=== PATIENT | male | born 1990 | race Caucasian/White ===

== ENCOUNTER 2023-10-23 16:34 | Emergency (ER) | payer BC ==
[~2023-10-23] VITALS: Ht 188 cm; Wt 90.9 kg
[2023-10-23 16:58] VITALS: BP 104/54; PULSE 99; RESP 18; TEMP 97.8; O2SAT 98
[2023-10-23] MEDS: ondansetron 4mg rapidly disintigrating tab PO ONE (20:29)
[2023-10-23] MEDS ORDERED: ONDA8TAB13 PO (21:10)
[2023-10-23] MEDS ORDERED: HYDR-3965 PO (21:10)
[2023-10-24] MEDS ORDERED: NAPR-56 PO (17:50)
[2023-10-24] MEDS ORDERED: SULF1TAB49 PO (17:50)
[2023-10-24] MEDS ORDERED: CEPH-585 PO (17:50)
== END 2023-10-23 21:25 | disposition home or self-care (01) ==
LOC: ER 16:35
DX: S60.222A Contusion of left hand, initial encounter (principal); X58.XXXA Exposure to other specified factors, initial encounter; Y93.89 Activity, other specified; Y92.89 Other specified places as the place of occurrence of the external cause; Y99.8 Other external cause status
CPT/HCPCS: 73130; 99283

== ENCOUNTER 2023-10-24 17:29 | Inpatient (IN) | payer BC, OTHER ==
[~2023-10-24] VITALS: Ht 188 cm; Wt 92.7 kg
[~2023-10-24 17:29] MED LIST: HYDR-3965 PO; ONDA8TAB13 PO
[2023-10-24] MEDS ORDERED: ketorolac trometh inj. 60 MG/2 ML VIAL IM ONE (17:50)
[2023-10-24] MEDS ORDERED: CEPH-585 PO (17:50)
[2023-10-24] MEDS ORDERED: NAPR-56 PO (17:50)
[2023-10-24] MEDS ORDERED: SULF1TAB49 PO (17:50)
[2023-10-24] MEDS ORDERED: ketorolac trometh. 30mg/ml inj. IM ONE (17:50)
[2023-10-24] MEDS ORDERED: iohexol 300mg/ml 100ml inj. ONE (18:39)
[2023-10-24 18:59] LABS: BASOPHILS % (AUTO) 0.1 % (0-1); EOSINOPHILS % (AUTO) 0 % (0-6); HEMOGLOBIN 15.7 g/dl (14.0-17.9); LYMPHOCYTES # (AUTO) 0.3 X10'3 (1.1-4.8); LYMPHOCYTES % (AUTO) 0.9 % (21-51); MEAN CORPUSCULAR HEMOGLOBIN 29.9 PG (27.0-31.0); MEAN CORPUSCULAR HGB CONC 34.2 g/dL (33.0-36.5); MEAN CORPUSCULAR VOLUME 87.3 FL (78-98); MEAN PLATELET VOLUME 7.6 FL (7.4-10.4); MONOCYTES # (AUTO) 0.7 X10'3 (0-0.9); MONOCYTES % (AUTO) 2.1 % (2-12); NEUTROPHILS # (AUTO) 31.1 X10'3 (1.8-7.7); NEUTROPHILS % (AUTO) 96.9 % (42-75); PLATELET COUNT 165 X10'3 (140-440); RED BLOOD COUNT 5.27 X10'6 (4.70-6.10); RED CELL DISTRIBUTION WIDTH 13.4 % (11.5-14.5)
[2023-10-24 19:10] LABS: ALBUMIN 3.5 G/DL (3.4-5.0); ANION GAP 14 (8-16); BLOOD UREA NITROGEN 22 MG/DL (7-18); BUN/CREATININE RATIO 13.6 (10.0-20.0); CALCIUM 9.2 MG/DL (8.5-10.1); CHLORIDE 99 MMOL/L (99-107); CREATININE 1.62 MG/DL (0.60-1.10); GLUCOSE 134 MG/DL (70-104); MAGNESIUM 1.3 MG/DL (1.5-2.4); POTASSIUM 3.4 MMOL/L (3.5-5.1); SODIUM 137 MMOL/L (135-145); TOTAL CARBON DIOXIDE 23.7 MMOL/L (24-32); eCRCL 74 ML/MIN; eGFR 49 ML/MIN
[2023-10-24 19:13] LABS: WHITE BLOOD COUNT 32.1 X10'3 (4.5-11.0)
[2023-10-24] MEDS: piperacillin/tazo 3.375gm/50ml 50 ML IV ONE (19:18)
[2023-10-24] MEDS: ondansetron/PF 4mg/2ml inj IV ONE (19:22)
[2023-10-24] MEDS: normal saline 1000ML IV soln IV ONE (19:22)
[2023-10-24] MEDS: acetaminophen 325mg tablet PO STA (19:41)
[2023-10-24] MEDS: ketorolac tromethamine 15mg/ml inj. IV ONE (19:41)
[2023-10-24] MEDS: morphine 4 MG/ML inj SYRINge IV ONE (19:41)
[2023-10-24 19:49] LABS: C-REACTIVE PROTEIN 28.72 MG/DL (0.0-0.5); CREATINE KINASE 103 U/L (39-308)
[2023-10-24] MEDS: clindamycin 600mg/D5W 50ml 50 ML IV ONE (19:49)
[2023-10-24] MEDS: HYDROmorphone 1 mg/ml syringe IV ONE (20:05)
[2023-10-24] MEDS: vancomycin/NS 1 GM ADD-VANTAGE 250 ML X 1 DOSE IV ONE (20:12)
[2023-10-24] MEDS: diphenhydrAMINE 50 mg/ml inj IV ONE (20:17)
[2023-10-24] MEDS: LORazepam 2 mg/ml vial IV ONE (20:37)
[2023-10-24 23:28] LABS: TOTAL CELLS COUNTED 100
[2023-10-24 23:30] LABS: PLATELET ESTIMATE NORMAL; TOXIC GRANULATION 1+; TOXIC VACUOLATION FEW
[2023-10-25] MEDS: normal saline 1000ml 1,000 ML IV SCH (00:05)
[2023-10-25] MEDS ORDERED: potassium Cl 20 mEq SR tablet PO PRN (00:05)
[2023-10-25] MEDS ORDERED: magnesium 2GM in 50ml NS 50 ML IV PRN (00:05)
[2023-10-25] MEDS ORDERED: magnesium Cl slow-release 64mg tablet PO PRN (00:05)
[2023-10-25] MEDS ORDERED: potassium Cl 40MEQ/1/2NS 520ml 520 ML IV PRN (00:05)
[2023-10-25] MEDS ORDERED: magnesium 4gm in 100ml NS 100 ML IV PRN (00:05)
[2023-10-25 04:03] LABS: MAGNESIUM 1.5 MG/DL (1.5-2.4); POTASSIUM 3.8 MMOL/L (3.5-5.1)
[2023-10-25] MEDS: morphine 2 MG/ML inj. syringe IV PRN (05:12)
[2023-10-25 08:17] LABS: BASOPHILS % (AUTO) 0.1 % (0-1); EOSINOPHILS # (AUTO) 0.1 X10'3 (0-0.9); EOSINOPHILS % (AUTO) 0.5 % (0-6); HEMATOCRIT 37.5 % (42.0-52.0); HEMOGLOBIN 12.6 g/dl (14.0-17.9); LYMPHOCYTES # (AUTO) 0.4 X10'3 (1.1-4.8); LYMPHOCYTES % (AUTO) 2.1 % (21-51); MEAN CORPUSCULAR HEMOGLOBIN 29.8 PG (27.0-31.0); MEAN CORPUSCULAR HGB CONC 33.7 g/dL (33.0-36.5); MEAN CORPUSCULAR VOLUME 88.3 FL (78-98); MEAN PLATELET VOLUME 7.4 FL (7.4-10.4); MONOCYTES # (AUTO) 0.6 X10'3 (0-0.9); MONOCYTES % (AUTO) 2.7 % (2-12); NEUTROPHILS # (AUTO) 20.2 X10'3 (1.8-7.7); NEUTROPHILS % (AUTO) 94.6 % (42-75); PLATELET COUNT 134 X10'3 (140-440); RED BLOOD COUNT 4.25 X10'6 (4.70-6.10); RED CELL DISTRIBUTION WIDTH 13.6 % (11.5-14.5); WHITE BLOOD COUNT 21.3 X10'3 (4.5-11.0)
[2023-10-25 08:29] LABS: ALANINE AMINOTRANSFERASE 11 U/L (12-78); ALBUMIN 2.2 G/DL (3.4-5.0); ALBUMIN/GLOBULIN RATIO 0.7 (1.1-1.5); ALKALINE PHOSPHATASE 49 IU/L (46-116); ANION GAP 7 (8-16); ASPARTATE AMINO TRANSFERASE 12 U/L (10-37); BILIRUBIN,TOTAL 1.4 MG/DL (0.1-1.0); BLOOD UREA NITROGEN 24 MG/DL (7-18); BUN/CREATININE RATIO 16.8 (10.0-20.0); CHLORIDE 108 MMOL/L (99-107); CREATINE KINASE 46 U/L (39-308); CREATININE 1.43 MG/DL (0.60-1.10); GLUCOSE 98 MG/DL (70-104); SODIUM 140 MMOL/L (135-145); TOTAL CARBON DIOXIDE 24.6 MMOL/L (24-32); TOTAL PROTEIN 5.3 G/DL (6.4-8.2); eCRCL 84 ML/MIN; eGFR 56 ML/MIN
[2023-10-25] MEDS: piperacillin/tazo 3.375gm/50ml 50 ML IV SCH (08:49)
[2023-10-25] MEDS: docusate sod 100mg capsule PO SCH (08:49)
[2023-10-25 08:50] LABS: TOTAL CELLS COUNTED 100
[2023-10-25 08:51] LABS: PLATELET ESTIMATE DECREASED; TOXIC VACUOLATION 1+
[2023-10-25] MEDS: K and/or MAG REPLACEMENT MC SCH (09:21)
[2023-10-25 09:25] VITALS: BP 101/58; PULSE 111; RESP 18; TEMP 98.2; O2SAT 100
[2023-10-25] MEDS: vancomycin/NS 1 GM ADD-VANTAGE 250 ML IV SCH (09:30)
[2023-10-25 09:37] LABS: C-REACTIVE PROTEIN 32.02 MG/DL (0.0-0.5)
[2023-10-25 09:39] LABS: CALCIUM 7.2 MG/DL (8.5-10.1)
[2023-10-25 11:15] VITALS: BP 103/56; PULSE 105; RESP 16; TEMP 97.9; O2SAT 97
[2023-10-25] MEDS: acetaminophen 325mg tablet PO PRN (13:24)
[2023-10-25 18:00] VITALS: BP 127/65; PULSE 94; RESP 17; TEMP 98.8; O2SAT 99
[2023-10-25 20:00] VITALS: RESP 17; RESP 18; O2SAT 97; O2SAT 99
[2023-10-25] MEDS: enoxaparin 40mg/0.4ml syringe SQ SCH (20:00)
[2023-10-25 22:00] VITALS: BP 106/48; PULSE 109; RESP 18; TEMP 99.8; O2SAT 97
[2023-10-25] MEDS: ringers solution, lacted 1,000 ML IV ONE (22:12)
[2023-10-26] VITALS (7 sets, daily range): BP systolic 110–132; BP diastolic 66–90; PULSE 63–149; RESP 16–22; TEMP 97.8–100; O2SAT 95–98
[2023-10-26] MEDS: VANCOMYCIN LEVEL IJ ONE (07:30)
[2023-10-26 07:46] LABS: BASOPHILS # (AUTO) 0.1 X10'3 (0-0.2); BASOPHILS % (AUTO) 0.5 % (0-1); EOSINOPHILS # (AUTO) 0.1 X10'3 (0-0.9); EOSINOPHILS % (AUTO) 0.9 % (0-6); HEMATOCRIT 33.2 % (42.0-52.0); HEMOGLOBIN 11.4 g/dl (14.0-17.9); LYMPHOCYTES # (AUTO) 0.5 X10'3 (1.1-4.8); LYMPHOCYTES % (AUTO) 3.2 % (21-51); MEAN CORPUSCULAR HGB CONC 34.4 g/dL (33.0-36.5); MEAN CORPUSCULAR VOLUME 87.1 FL (78-98); MEAN PLATELET VOLUME 7.6 FL (7.4-10.4); MONOCYTES # (AUTO) 0.5 X10'3 (0-0.9); MONOCYTES % (AUTO) 3.3 % (2-12); NEUTROPHILS # (AUTO) 15.2 X10'3 (1.8-7.7); NEUTROPHILS % (AUTO) 92.1 % (42-75); PLATELET COUNT 124 X10'3 (140-440); RED BLOOD COUNT 3.81 X10'6 (4.70-6.10); RED CELL DISTRIBUTION WIDTH 13.6 % (11.5-14.5); WHITE BLOOD COUNT 16.5 X10'3 (4.5-11.0)
[2023-10-26 07:53] LABS: ANION GAP 12 (8-16); BLOOD UREA NITROGEN 16 MG/DL (7-18); BUN/CREATININE RATIO 15.1 (10.0-20.0); CALCIUM 7.5 MG/DL (8.5-10.1); CHLORIDE 106 MMOL/L (99-107); CREATININE 1.06 MG/DL (0.60-1.10); GLUCOSE 96 MG/DL (70-104); MAGNESIUM 1.7 MG/DL (1.5-2.4); POTASSIUM 3.4 MMOL/L (3.5-5.1); SODIUM 140 MMOL/L (135-145); TOTAL CARBON DIOXIDE 21.6 MMOL/L (24-32); VANCOMYCIN,TROUGH 8.5 ug/mL (10.0-20.0); eCRCL 113 ML/MIN; eGFR 80 ML/MIN
[2023-10-26] MEDS: VANCOmycin 1250MG/NS 250ml Bag 250 ML IV SCH (17:07)
[2023-10-26] MEDS: mag hydrox/Alum hydrox/simeth 30ml oral suspension PO PRN (19:16)
[2023-10-26] MEDS: potassium Cl 20 mEq SR tablet PO PRN (19:22)
[2023-10-27] MEDS: ondansetron/PF 4mg/2ml inj IV PRN (00:17)
[2023-10-27 06:00] VITALS: BP 123/71; PULSE 85; RESP 20; TEMP 99.3; O2SAT 99
[2023-10-27 06:38] LABS: BASOPHILS # (AUTO) 0.1 X10'3 (0-0.2); BASOPHILS % (AUTO) 0.4 % (0-1); EOSINOPHILS # (AUTO) 0.1 X10'3 (0-0.9); EOSINOPHILS % (AUTO) 0.7 % (0-6); HEMATOCRIT 32.8 % (42.0-52.0); HEMOGLOBIN 11.1 g/dl (14.0-17.9); LYMPHOCYTES # (AUTO) 0.9 X10'3 (1.1-4.8); MEAN CORPUSCULAR HEMOGLOBIN 29.6 PG (27.0-31.0); MEAN CORPUSCULAR HGB CONC 33.9 g/dL (33.0-36.5); MEAN CORPUSCULAR VOLUME 87.6 FL (78-98); MONOCYTES # (AUTO) 1.1 X10'3 (0-0.9); MONOCYTES % (AUTO) 8.7 % (2-12); NEUTROPHILS # (AUTO) 10.8 X10'3 (1.8-7.7); NEUTROPHILS % (AUTO) 83.2 % (42-75); PLATELET COUNT 139 X10'3 (140-440); RED BLOOD COUNT 3.75 X10'6 (4.70-6.10); RED CELL DISTRIBUTION WIDTH 13.6 % (11.5-14.5)
[2023-10-27 06:54] LABS: ALBUMIN 2.1 G/DL (3.4-5.0); ANION GAP 10 (8-16); BLOOD UREA NITROGEN 9 MG/DL (7-18); BUN/CREATININE RATIO 9.5 (10.0-20.0); CALCIUM 7.6 MG/DL (8.5-10.1); CHLORIDE 107 MMOL/L (99-107); CREATININE 0.95 MG/DL (0.60-1.10); GLUCOSE 98 MG/DL (70-104); MAGNESIUM 1.9 MG/DL (1.5-2.4); POTASSIUM 3.5 MMOL/L (3.5-5.1); SODIUM 139 MMOL/L (135-145); TOTAL CARBON DIOXIDE 22.3 MMOL/L (24-32); eCRCL 126 ML/MIN; eGFR 90 ML/MIN
[2023-10-27 07:01] LABS: C DIFF ANTIGEN NEGATIVE (NEGATIVE); C DIFF SPECIMEN=DIARRHEA? ACCEPTABLE; C DIFFICILE TOXINS A&B NEGATIVE (Neg)
[2023-10-27 08:15] VITALS: RESP 16
[2023-10-27 11:27] VITALS: BP 127/72; PULSE 82; RESP 16; TEMP 98; O2SAT 99
[2023-10-27] MEDS ORDERED: lactobacillus rhamnosus 10,000 MMU CELLS/CAPSULE PO SCH (12:30)
[2023-10-27] MEDS ORDERED: lactobacillus acidophilus cap PO SCH (12:30)
[2023-10-27] MEDS: lactobacillus rhamnosus 10,000 MMU CELLS/CAPSULE PO ONE (13:19)
[2023-10-27] MEDS ORDERED: GADOTERATE MEGLUMINE 7.5 MMOL/15 ML VIAL IV ONE (14:26)
[2023-10-27] MEDS: VANCOMYCIN LEVEL IJ ONE (16:00)
[2023-10-27] MEDS: HYDROcodone/acetaminophen 5mg/325mg tablet PO PRN (17:16)
[2023-10-27] MEDS: ketorolac tromethamine 15mg/ml inj. IV ONE (17:17)
[2023-10-27] MEDS: lactobacillus rhamnosus 10,000 MMU CELLS/CAPSULE PO SCH (17:30)
[2023-10-27 18:30] VITALS: BP 114/65; PULSE 76; RESP 20; TEMP 99.5; O2SAT 95
[2023-10-27 22:00] VITALS: BP 110/64; PULSE 61; RESP 16; TEMP 97.9; O2SAT 98
[2023-10-28 06:06] LABS: BASOPHILS % (AUTO) 0.3 % (0-1); EOSINOPHILS # (AUTO) 0.2 X10'3 (0-0.9); EOSINOPHILS % (AUTO) 2.4 % (0-6); HEMATOCRIT 30.4 % (42.0-52.0); HEMOGLOBIN 10.7 g/dl (14.0-17.9); LYMPHOCYTES # (AUTO) 0.9 X10'3 (1.1-4.8); LYMPHOCYTES % (AUTO) 11.7 % (21-51); MEAN CORPUSCULAR HEMOGLOBIN 30.7 PG (27.0-31.0); MEAN CORPUSCULAR HGB CONC 35.3 g/dL (33.0-36.5); MEAN CORPUSCULAR VOLUME 86.9 FL (78-98); MONOCYTES # (AUTO) 1.1 X10'3 (0-0.9); MONOCYTES % (AUTO) 14.9 % (2-12); NEUTROPHILS # (AUTO) 5.2 X10'3 (1.8-7.7); NEUTROPHILS % (AUTO) 70.7 % (42-75); PLATELET COUNT 142 X10'3 (140-440); RED CELL DISTRIBUTION WIDTH 13.4 % (11.5-14.5); WHITE BLOOD COUNT 7.4 X10'3 (4.5-11.0)
[2023-10-28 06:14] LABS: ALBUMIN 1.9 G/DL (3.4-5.0); ANION GAP 10 (8-16); BLOOD UREA NITROGEN 11 MG/DL (7-18); CALCIUM 7.8 MG/DL (8.5-10.1); CHLORIDE 109 MMOL/L (99-107); CREATININE 1.22 MG/DL (0.60-1.10); GLUCOSE 91 MG/DL (70-104); POTASSIUM 3.3 MMOL/L (3.5-5.1); SODIUM 141 MMOL/L (135-145); TOTAL CARBON DIOXIDE 21.9 MMOL/L (24-32); eCRCL 98 ML/MIN; eGFR 68 ML/MIN
[2023-10-28 06:58] VITALS: BP 113/69; PULSE 69; RESP 16; TEMP 97.7; O2SAT 99
[2023-10-28 09:00] VITALS: RESP 18; O2SAT 98
[2023-10-28 10:00] VITALS: BP 115/70; PULSE 49; RESP 14; TEMP 97.5; O2SAT 97
[2023-10-28] MEDS ORDERED: magnesium 2GM in 50ml NS 50 ML IV PRN (10:35)
[2023-10-28] MEDS ORDERED: potassium Cl 40MEQ/1/2NS 520ml 520 ML IV PRN (10:35)
[2023-10-28] MEDS ORDERED: magnesium 4gm in 100ml NS 100 ML IV PRN (10:35)
[2023-10-28] MEDS ORDERED: magnesium Cl slow-release 64mg tablet PO PRN (10:35)
[2023-10-28] MEDS: potassium Cl 20 mEq SR tablet PO PRN ×2 (11:42→19:17)
[2023-10-28] MEDS: magnesium hydroxide 30ml (MOM) UD suspension PO PRN (14:30)
[2023-10-28 18:30] VITALS: BP 126/64; PULSE 55; RESP 16; TEMP 97.9; O2SAT 99
[2023-10-28 18:43] VITALS: BP 126/64; PULSE 55; RESP 16; TEMP 97.9; O2SAT 99
[2023-10-28] MEDS: lactobacillus rhamnosus 10,000 MMU CELLS/CAPSULE PO SCH (19:17)
[2023-10-28] MEDS: ketorolac tromethamine 15mg/ml inj. IV ONE (21:08)
[2023-10-29 06:00] VITALS: BP 126/71; PULSE 61; RESP 16; TEMP 96.3; O2SAT 96
[2023-10-29 06:24] LABS: BASOPHILS % (AUTO) 0.3 % (0-1); EOSINOPHILS # (AUTO) 0.1 X10'3 (0-0.9); EOSINOPHILS % (AUTO) 0.9 % (0-6); HEMOGLOBIN 11.3 g/dl (14.0-17.9); LYMPHOCYTES # (AUTO) 1.1 X10'3 (1.1-4.8); LYMPHOCYTES % (AUTO) 11.3 % (21-51); MEAN CORPUSCULAR HEMOGLOBIN 30.1 PG (27.0-31.0); MEAN CORPUSCULAR HGB CONC 34.3 g/dL (33.0-36.5); MEAN CORPUSCULAR VOLUME 87.7 FL (78-98); MEAN PLATELET VOLUME 7.2 FL (7.4-10.4); MONOCYTES # (AUTO) 1.5 X10'3 (0-0.9); MONOCYTES % (AUTO) 15.9 % (2-12); NEUTROPHILS # (AUTO) 6.9 X10'3 (1.8-7.7); NEUTROPHILS % (AUTO) 71.6 % (42-75); PLATELET COUNT 217 X10'3 (140-440); RED BLOOD COUNT 3.76 X10'6 (4.70-6.10); RED CELL DISTRIBUTION WIDTH 13.3 % (11.5-14.5); WHITE BLOOD COUNT 9.6 X10'3 (4.5-11.0)
[2023-10-29 06:25] LABS: ANION GAP 9 (8-16); BLOOD UREA NITROGEN 17 MG/DL (7-18); CALCIUM 7.8 MG/DL (8.5-10.1); CHLORIDE 112 MMOL/L (99-107); CREATININE 2.82 MG/DL (0.60-1.10); GLUCOSE 91 MG/DL (70-104); POTASSIUM 3.7 MMOL/L (3.5-5.1); SODIUM 144 MMOL/L (135-145); TOTAL CARBON DIOXIDE 23.4 MMOL/L (24-32); eCRCL 43 ML/MIN; eGFR 26 ML/MIN
[2023-10-29 06:26] LABS: ALBUMIN 1.8 G/DL (3.4-5.0); MAGNESIUM 2.2 MG/DL (1.5-2.4)
[2023-10-29 07:06] LABS: TOTAL CELLS COUNTED 100
[2023-10-29 07:07] LABS: PLATELET ESTIMATE NORMAL
[2023-10-29 10:00] VITALS: BP 126/71; PULSE 62; RESP 16; TEMP 97.7; O2SAT 97
[2023-10-29] MEDS: NUT.TX.IMPAIRED DIGEST FXN (Ensure Clear) 237 ML PO SCH (13:27)
[2023-10-29 18:00] VITALS: BP 130/69; PULSE 61; RESP 14; TEMP 98; O2SAT 96
[2023-10-29 20:00] VITALS: RESP 16; O2SAT 96
[2023-10-29 22:00] VITALS: BP 140/81; PULSE 69; RESP 16; TEMP 98.4; O2SAT 99
[2023-10-29 23:08] LABS: BILIRUBIN,URINE NEGATIVE (Neg); CLARITY,URINE CLEAR (Clear); COLOR,URINE YELLOW (Yellow); GLUCOSE, URINE NEGATIVE (Neg); KETONES,URINE TRACE mg/dl (Neg); LEUKOCYTE ESTERASE ,URINE NEGATIVE (Neg); NITRITES, URINE NEGATIVE (Neg); OCCULT BLOOD,URINE TRACE-INTACT (Neg); PROTEIN,URINE 30 mg/dl (Neg); UROBILINOGEN,URINE 0.2 E.U/dL (0.2-1.0)
[2023-10-29 23:21] LABS: UA COLLECTION TYPE CLN CATCH MIDSTREAM
[2023-10-29 23:22] LABS: BACTERIA,URINE FEW /HPF (Neg); RBC,URINE 0-2 /HPF (0-2); WBC,URINE 0-4 /HPF (0-4)
[2023-10-29 23:23] LABS: SQUAMOUS EPITHELIAL CELL,UR NONE SEEN /LPF (FEW)
[2023-10-30] VITALS (8 sets, daily range): BP systolic 119–134; BP diastolic 55–73; PULSE 54–62; RESP 14–18; TEMP 98.1–99.4; O2SAT 96–100
[2023-10-30 00:22] LABS: UA EOSINOPHILS NO EOS /HPF
[2023-10-30 05:40] LABS: BASOPHILS % (AUTO) 0.4 % (0-1); EOSINOPHILS % (AUTO) 0.2 % (0-6); HEMATOCRIT 32.4 % (42.0-52.0); HEMOGLOBIN 11.2 g/dl (14.0-17.9); LYMPHOCYTES # (AUTO) 1.1 X10'3 (1.1-4.8); LYMPHOCYTES % (AUTO) 10.3 % (21-51); MEAN CORPUSCULAR HEMOGLOBIN 30.1 PG (27.0-31.0); MEAN CORPUSCULAR HGB CONC 34.5 g/dL (33.0-36.5); MEAN CORPUSCULAR VOLUME 87.1 FL (78-98); MEAN PLATELET VOLUME 6.9 FL (7.4-10.4); MONOCYTES # (AUTO) 1.3 X10'3 (0-0.9); NEUTROPHILS # (AUTO) 8.1 X10'3 (1.8-7.7); NEUTROPHILS % (AUTO) 77.1 % (42-75); PLATELET COUNT 274 X10'3 (140-440); RED BLOOD COUNT 3.72 X10'6 (4.70-6.10); RED CELL DISTRIBUTION WIDTH 13.6 % (11.5-14.5); WHITE BLOOD COUNT 10.5 X10'3 (4.5-11.0)
[2023-10-30 05:55] LABS: ALBUMIN 1.8 G/DL (3.4-5.0); ANION GAP 9 (8-16); BLOOD UREA NITROGEN 18 MG/DL (7-18); CALCIUM 7.5 MG/DL (8.5-10.1); CHLORIDE 111 MMOL/L (99-107); CREATINE KINASE 33 U/L (39-308); CREATININE 3.57 MG/DL (0.60-1.10); GLUCOSE 98 MG/DL (70-104); MAGNESIUM 2.5 MG/DL (1.5-2.4); PHOSPHORUS 3.2 MG/DL (2.3-4.5); POTASSIUM 3.7 MMOL/L (3.5-5.1); SODIUM 141 MMOL/L (135-145); TOTAL CARBON DIOXIDE 21.1 MMOL/L (24-32); eCRCL 34 ML/MIN; eGFR 20 ML/MIN
[2023-10-30 07:00] LABS: LACTATE DEHYDROGENASE 202 U/L (85-227)
[2023-10-30] MEDS: cefepime 2g/NS 100ml ADVANTAGE 100 ML IV SCH (08:48)
[2023-10-30] MEDS: methylPREDNISolone sod succ 125mg/2ml vial IV ONE (14:40)
[2023-10-30] MEDS: furosemide 40mg/4ml inj IV ONE (14:40)
[2023-10-30] MEDS: linezolid 600mg tablet PO SCH (19:43)
[2023-10-31 06:29] LABS: BASOPHILS % (AUTO) 0.1 % (0-1); EOSINOPHILS % (AUTO) 0 % (0-6); HEMATOCRIT 36.6 % (42.0-52.0); HEMOGLOBIN 12.6 g/dl (14.0-17.9); LYMPHOCYTES # (AUTO) 0.9 X10'3 (1.1-4.8); LYMPHOCYTES % (AUTO) 7.1 % (21-51); MEAN CORPUSCULAR HGB CONC 34.4 g/dL (33.0-36.5); MEAN CORPUSCULAR VOLUME 87.1 FL (78-98); MONOCYTES # (AUTO) 0.2 X10'3 (0-0.9); MONOCYTES % (AUTO) 1.5 % (2-12); NEUTROPHILS % (AUTO) 91.3 % (42-75); PLATELET COUNT 383 X10'3 (140-440); RED CELL DISTRIBUTION WIDTH 13.9 % (11.5-14.5); WHITE BLOOD COUNT 12.1 X10'3 (4.5-11.0)
[2023-10-31 06:30] VITALS: BP 111/67; PULSE 55; RESP 16; TEMP 98.5; O2SAT 95
[2023-10-31 06:40] LABS: ALBUMIN 2.1 G/DL (3.4-5.0); ANION GAP 9 (8-16); BLOOD UREA NITROGEN 23 MG/DL (7-18); BUN/CREATININE RATIO 5.8 (10.0-20.0); CALCIUM 8.2 MG/DL (8.5-10.1); CHLORIDE 109 MMOL/L (99-107); CREATININE 3.99 MG/DL (0.60-1.10); GLUCOSE 125 MG/DL (70-104); MAGNESIUM 2.5 MG/DL (1.5-2.4); PHOSPHORUS 4.5 MG/DL (2.3-4.5); RHEUM FACTOR QUAL REFLEX TITER NEGATIVE (Neg); SODIUM 141 MMOL/L (135-145); TOTAL CARBON DIOXIDE 22.9 MMOL/L (24-32); eCRCL 30 ML/MIN; eGFR 17 ML/MIN
[2023-10-31 07:11] LABS: HIV ANTIBODY 1&2 RAPID NON-REACTIVE (Neg)
[2023-10-31 08:00] VITALS: RESP 16; O2SAT 95
[2023-10-31] MEDS: furosemide 20 MG/2 ML vial IV ONE (13:58)
[2023-10-31] MEDS: normal saline 1000ml 1,000 ML IV SCH (15:55)
[2023-10-31 18:00] VITALS: BP 137/80; PULSE 54; RESP 17; TEMP 97.5; O2SAT 99
[2023-10-31 20:00] VITALS: RESP 14; O2SAT 99
[2023-10-31 22:00] VITALS: BP 123/80; PULSE 65; RESP 20; TEMP 98.9; O2SAT 99
[2023-11-01 04:56] LABS: BASOPHILS # (AUTO) 0.1 X10'3 (0-0.2); BASOPHILS % (AUTO) 0.5 % (0-1); EOSINOPHILS % (AUTO) 0.1 % (0-6); HEMATOCRIT 31.9 % (42.0-52.0); LYMPHOCYTES # (AUTO) 1.5 X10'3 (1.1-4.8); MEAN CORPUSCULAR HEMOGLOBIN 29.9 PG (27.0-31.0); MEAN CORPUSCULAR HGB CONC 34.4 g/dL (33.0-36.5); MEAN CORPUSCULAR VOLUME 86.8 FL (78-98); MEAN PLATELET VOLUME 6.7 FL (7.4-10.4); MONOCYTES # (AUTO) 0.9 X10'3 (0-0.9); MONOCYTES % (AUTO) 6.9 % (2-12); NEUTROPHILS # (AUTO) 9.9 X10'3 (1.8-7.7); NEUTROPHILS % (AUTO) 80.5 % (42-75); PLATELET COUNT 357 X10'3 (140-440); RED BLOOD COUNT 3.68 X10'6 (4.70-6.10); RED CELL DISTRIBUTION WIDTH 13.6 % (11.5-14.5); WHITE BLOOD COUNT 12.3 X10'3 (4.5-11.0)
[2023-11-01 05:09] LABS: ANION GAP 11 (8-16); BLOOD UREA NITROGEN 28 MG/DL (7-18); BUN/CREATININE RATIO 6.9 (10.0-20.0); CALCIUM 7.8 MG/DL (8.5-10.1); CHLORIDE 111 MMOL/L (99-107); CREATININE 4.04 MG/DL (0.60-1.10); GLUCOSE 127 MG/DL (70-104); MAGNESIUM 2.4 MG/DL (1.5-2.4); PHOSPHORUS 4.7 MG/DL (2.3-4.5); POTASSIUM 3.7 MMOL/L (3.5-5.1); SODIUM 142 MMOL/L (135-145); TOTAL CARBON DIOXIDE 20.5 MMOL/L (24-32); eCRCL 30 ML/MIN; eGFR 17 ML/MIN
[2023-11-01 06:00] VITALS: BP 126/72; PULSE 63; RESP 16; TEMP 99.3; O2SAT 98
[2023-11-01 08:15] VITALS: RESP 16
[2023-11-01 10:00] VITALS: BP 133/74; PULSE 52; RESP 17; TEMP 97.1; O2SAT 100
[2023-11-01] MEDS: furosemide 40mg/4ml inj IV ONE (11:49)
[2023-11-01] MEDS: methylPREDNISolone sod succ 125mg/2ml vial IV ONE (11:50)
[2023-11-01 16:05] LABS: ANTINUCLEAR ANTIBODIES Negative (Negative); ANTISTREPTOLYSIN O AB 65.9 IU/mL (0.0-200.0); COMPLEMENT C3, SERUM 121 mg/dL (82-167); HBSAG SCREEN Negative (Negative)
[2023-11-01 18:00] VITALS: BP 151/75; PULSE 54; RESP 17; TEMP 98.3; O2SAT 96
[2023-11-01 20:00] VITALS: RESP 17; O2SAT 96
[2023-11-01] MEDS: heparin, porcine 5000 units/ml vial SQ SCH (20:00)
[2023-11-01 22:00] VITALS: BP 125/65; PULSE 55; RESP 19; TEMP 97.6; O2SAT 98
[2023-11-02 05:50] LABS: ALBUMIN 2.5 G/DL (3.4-5.0); ANION GAP 13 (8-16); BLOOD UREA NITROGEN 30 MG/DL (7-18); BUN/CREATININE RATIO 7.6 (10.0-20.0); CALCIUM 8.3 MG/DL (8.5-10.1); CHLORIDE 108 MMOL/L (99-107); CREATININE 3.97 MG/DL (0.60-1.10); GLUCOSE 108 MG/DL (70-104); MAGNESIUM 2.4 MG/DL (1.5-2.4); PHOSPHORUS 5.1 MG/DL (2.3-4.5); POTASSIUM 3.9 MMOL/L (3.5-5.1); SODIUM 143 MMOL/L (135-145); TOTAL CARBON DIOXIDE 22.1 MMOL/L (24-32); eCRCL 30 ML/MIN; eGFR 17 ML/MIN
[2023-11-02 05:57] LABS: BASOPHILS % (AUTO) 0.2 % (0-1); EOSINOPHILS % (AUTO) 0 % (0-6); HEMATOCRIT 34.6 % (42.0-52.0); HEMOGLOBIN 11.8 g/dl (14.0-17.9); LYMPHOCYTES # (AUTO) 1.6 X10'3 (1.1-4.8); LYMPHOCYTES % (AUTO) 10.5 % (21-51); MEAN CORPUSCULAR HEMOGLOBIN 29.7 PG (27.0-31.0); MEAN CORPUSCULAR HGB CONC 34.1 g/dL (33.0-36.5); MEAN PLATELET VOLUME 6.9 FL (7.4-10.4); MONOCYTES # (AUTO) 0.5 X10'3 (0-0.9); MONOCYTES % (AUTO) 3.3 % (2-12); NEUTROPHILS # (AUTO) 13.1 X10'3 (1.8-7.7); PLATELET COUNT 490 X10'3 (140-440); RED BLOOD COUNT 3.98 X10'6 (4.70-6.10); RED CELL DISTRIBUTION WIDTH 13.6 % (11.5-14.5); WHITE BLOOD COUNT 15.2 X10'3 (4.5-11.0)
[2023-11-02 06:54] VITALS: BP 126/63; PULSE 63; RESP 16; TEMP 98; O2SAT 99
[2023-11-02 08:00] VITALS: RESP 16; O2SAT 99
[2023-11-02 10:00] VITALS: BP 124/73; PULSE 60; RESP 20; TEMP 98.6; O2SAT 100
[2023-11-02 10:54] LABS: COMPLEMENT C4, SERUM 19 mg/dL (12-38)
[2023-11-02 14:39] LABS: BILIRUBIN,URINE NEGATIVE (Neg); CLARITY,URINE CLEAR (Clear); COLOR,URINE YELLOW (Yellow); GLUCOSE, URINE NEGATIVE (Neg); KETONES,URINE NEGATIVE (Neg); LEUKOCYTE ESTERASE ,URINE NEGATIVE (Neg); NITRITES, URINE NEGATIVE (Neg); OCCULT BLOOD,URINE TRACE-INTACT (Neg); PROTEIN,URINE NEGATIVE (Neg); UROBILINOGEN,URINE 0.2 E.U/dL (0.2-1.0)
[2023-11-02 14:44] LABS: UA COLLECTION TYPE CLN CATCH MIDSTREAM
[2023-11-02 14:45] LABS: BACTERIA,URINE FEW /HPF (Neg); MUCUS STRANDS NONE SEEN /LPF (Neg); RBC,URINE 0-2 /HPF (0-2); SQUAMOUS EPITHELIAL CELL,UR FEW /LPF (FEW); WBC,URINE 20-30 /HPF (0-4)
[2023-11-02 14:48] LABS: TOTAL PROTEIN,URINE RANDOM 35.3 MG/DL
[2023-11-02 15:10] LABS: UA EOSINOPHILS NO EOS /HPF
[2023-11-02 18:00] VITALS: BP 137/72; PULSE 75; RESP 16; TEMP 97.6; O2SAT 96
[2023-11-02 20:00] VITALS: RESP 16; O2SAT 96
[2023-11-02 22:00] VITALS: BP 123/63; PULSE 52; RESP 18; TEMP 97.6; O2SAT 98
[2023-11-03 06:39] LABS: BASOPHILS % (AUTO) 0.3 % (0-1); EOSINOPHILS % (AUTO) 0.1 % (0-6); HEMATOCRIT 31.8 % (42.0-52.0); HEMOGLOBIN 10.7 g/dl (14.0-17.9); LYMPHOCYTES # (AUTO) 1.3 X10'3 (1.1-4.8); LYMPHOCYTES % (AUTO) 11.8 % (21-51); MEAN CORPUSCULAR HEMOGLOBIN 29.6 PG (27.0-31.0); MEAN CORPUSCULAR HGB CONC 33.8 g/dL (33.0-36.5); MEAN CORPUSCULAR VOLUME 87.6 FL (78-98); MONOCYTES # (AUTO) 0.7 X10'3 (0-0.9); MONOCYTES % (AUTO) 6.5 % (2-12); NEUTROPHILS % (AUTO) 81.3 % (42-75); PLATELET COUNT 381 X10'3 (140-440); RED BLOOD COUNT 3.63 X10'6 (4.70-6.10); RED CELL DISTRIBUTION WIDTH 13.7 % (11.5-14.5)
[2023-11-03 06:54] LABS: ALBUMIN 2.1 G/DL (3.4-5.0); ANION GAP 14 (8-16); BLOOD UREA NITROGEN 34 MG/DL (7-18); BUN/CREATININE RATIO 8.7 (10.0-20.0); CALCIUM 8.1 MG/DL (8.5-10.1); CHLORIDE 110 MMOL/L (99-107); CREATININE 3.92 MG/DL (0.60-1.10); GLUCOSE 98 MG/DL (70-104); MAGNESIUM 2.5 MG/DL (1.5-2.4); POTASSIUM 3.8 MMOL/L (3.5-5.1); SODIUM 145 MMOL/L (135-145); TOTAL CARBON DIOXIDE 21.4 MMOL/L (24-32); eCRCL 31 ML/MIN; eGFR 18 ML/MIN
[2023-11-03 06:55] VITALS: BP 117/72; PULSE 52; RESP 16; TEMP 98; O2SAT 96
[2023-11-03 08:30] VITALS: RESP 18; O2SAT 98
[2023-11-03 11:00] VITALS: BP 132/87; PULSE 51; RESP 16; TEMP 98.2; O2SAT 99
[2023-11-03] MEDS ORDERED: iohexol 350MG/ML 100ml bottle IV ONE (14:05)
[2023-11-03] MEDS ORDERED: iohexol 350 MG/ML 50ML vial IV ONE (14:06)
[2023-11-03 18:00] VITALS: BP 144/81; PULSE 51; RESP 15; TEMP 97.4; O2SAT 99
[2023-11-03] MEDS: NUT.TX.IMP.RENAL FXN,LAC-REDUC (Nepro) 237 ML VANILLA PO SCH (18:00)
[2023-11-03 20:00] VITALS: RESP 15; O2SAT 99
[2023-11-03 22:14] VITALS: BP 141/81; PULSE 63; RESP 20; TEMP 97.7; O2SAT 100
[2023-11-04 06:23] LABS: BASOPHILS % (AUTO) 0.4 % (0-1); EOSINOPHILS % (AUTO) 0.2 % (0-6); HEMATOCRIT 31.3 % (42.0-52.0); HEMOGLOBIN 10.8 g/dl (14.0-17.9); LYMPHOCYTES # (AUTO) 1.2 X10'3 (1.1-4.8); LYMPHOCYTES % (AUTO) 11.4 % (21-51); MEAN CORPUSCULAR HEMOGLOBIN 30.2 PG (27.0-31.0); MEAN CORPUSCULAR HGB CONC 34.6 g/dL (33.0-36.5); MEAN CORPUSCULAR VOLUME 87.2 FL (78-98); MEAN PLATELET VOLUME 6.9 FL (7.4-10.4); MONOCYTES # (AUTO) 0.7 X10'3 (0-0.9); MONOCYTES % (AUTO) 6.5 % (2-12); NEUTROPHILS # (AUTO) 8.3 X10'3 (1.8-7.7); NEUTROPHILS % (AUTO) 81.5 % (42-75); PLATELET COUNT 365 X10'3 (140-440); RED BLOOD COUNT 3.59 X10'6 (4.70-6.10); RED CELL DISTRIBUTION WIDTH 13.7 % (11.5-14.5); WHITE BLOOD COUNT 10.1 X10'3 (4.5-11.0)
[2023-11-04 06:32] VITALS: BP 151/71; PULSE 53; RESP 20; TEMP 97.7; O2SAT 98
[2023-11-04 06:46] LABS: ALBUMIN 2.1 G/DL (3.4-5.0); ANION GAP 9 (8-16); BLOOD UREA NITROGEN 30 MG/DL (7-18); BUN/CREATININE RATIO 7.7 (10.0-20.0); CALCIUM 8.1 MG/DL (8.5-10.1); CHLORIDE 110 MMOL/L (99-107); CREATININE 3.88 MG/DL (0.60-1.10); GLUCOSE 110 MG/DL (70-104); MAGNESIUM 2.4 MG/DL (1.5-2.4); POTASSIUM 3.7 MMOL/L (3.5-5.1); SODIUM 142 MMOL/L (135-145); TOTAL CARBON DIOXIDE 22.6 MMOL/L (24-32); eCRCL 31 ML/MIN; eGFR 18 ML/MIN
[2023-11-04 08:30] VITALS: RESP 18; O2SAT 97
[2023-11-04 10:00] VITALS: BP 146/77; PULSE 48; RESP 16; TEMP 97.9; O2SAT 95
[2023-11-04] MEDS ORDERED: LINE600T14 PO (10:18)
[2023-11-04] MEDS ORDERED: ACET-1008 PO (10:18)
== END 2023-11-04 13:30 | disposition home or self-care (01) | DRG 871 ==
LOC: ER 17:30 → ED HOLD 10-25 00:10 → SUR 3N 10-25 16:19
PROVIDERS: ADMIT Surgery; ATTEND Family Medicine
PROC: BW281ZZ Computerized Tomography (CT Scan) of Head using Low Osmolar Contrast (ICD-10-PCS; principal; 2023-10-24)
PROC: BP2P1ZZ Computerized Tomography (CT Scan) of Left Hand using Low Osmolar Contrast (ICD-10-PCS; 2023-10-24)
DX: A41.9 Sepsis, unspecified organism (principal); N17.0 Acute kidney failure with tubular necrosis; L03.114 Cellulitis of left upper limb; E87.20 Acidosis, unspecified; E87.6 Hypokalemia; E83.51 Hypocalcemia; D72.829 Elevated white blood cell count, unspecified; Z86.14 Personal history of Methicillin resistant Staphylococcus aureus infection; Z79.899 Other long term (current) drug therapy
CPT/HCPCS: 36415; 73201; 73220; 76700; 76770; 80048; 80053; 80202; 81001; 82550; 82570; 83605; 83615; 83735; 84100; 84132; 84145; 84156; 84300; 85007; 85025; 85651; 86038; 86060; 86140; 86160; 86430; 86703; 87040; 87207; 87324; 87340; 87449; 89055; 93931; 99285; A4565; A4615; A4649; A6223; A6258; A6402; A6446; A6449; A9575; G0378; J0692; J1170; J1200; J1644; J1885; J1940; J2060; J2270; J2405; J2543; J2930; J3370; J3490; J7030; J7120; Q9967